=== PATIENT | female | born 1955 | race Two or more races ===

== ENCOUNTER 2018-09-20 12:13 | Emergency (ER) | payer OTHER ==
[~2018-09-20] VITALS: Ht 165.1 cm; Wt 64.4 kg
[2018-09-20] MEDS ORDERED: SODIUM CHLORIDE 0.9% 1,000 ML IV ONE (12:19)
[2018-09-20 13:02] LABS: Basophils # (auto) 0 uL; Basophils % (auto) 0.2 % (0.0-2.0); Eosinophils # (auto) 0 uL; Eosinophils % (auto) 0.3 % (0.0-7.0); Hemoglobin 14.3 g/dL (12.2-16.2); Lymphocytes # (auto) 1.2 uL; Lymphocytes % (auto) 19.9 % (10.0-50.0); Mean Corpuscular Hemoglobin 31.2 pg (28.0-32.0); Mean Corpuscular Volume 91.6 fL (80.0-100.0); Monocytes # (auto) 0.4 uL; Monocytes % (auto) 7.4 % (0.0-12.0); Neutrophils # (auto) 4.3 uL; Neutrophils % (auto) 72.2 % (37.0-80.0); Nucleated Red Blood Cells % 0.3 %; Platelet Count (auto) 257 10^3/uL (140-450); Red Blood Cells 4.58 10^6/uL (4.0-5.20); Red Cell Distribution Width 13.2 % (11.8-14.3)
[2018-09-20 13:14] LABS: Urine Bacteria NONE SEEN /hpf (None Seen); Urine Blood Negative /uL (Negative); Urine Specific Gravity 1.039 (1.001-1.035); Urine WBC 2 /hpf (0 - 5)
[2018-09-20 13:20] LABS: Albumin 3.8 g/dL (3.4-5.0); BUN/Creatinine Ratio 25.6; Calcium 9.2 mg/dL (8.5-10.1); Potassium 3.9 mmol/L (3.5-5.1)
[2018-09-20 13:22] LABS: Bilirubin, Total 0.4 mg/dL (0.2-1.0); Total Protein 7.5 g/dL (6.4-8.2)
[2018-09-20] MEDS ORDERED: InsuLIN REG 1unit/0.01ml Soln (100units/ml) IV ONE ×2 (16:30→18:15)
[2018-09-20 19:26] VITALS: BP 131/68
== END 2018-09-20 20:28 | disposition home or self-care (01) ==
LOC: EDBD 12:13 → ER 12:17
DX: E11.65 Type 2 diabetes mellitus with hyperglycemia (principal); I10 Essential (primary) hypertension; Z85.42 Personal history of malignant neoplasm of other parts of uterus
CPT/HCPCS: 36415; 70450; 71045; 80053; 81001; 82962; 85025; 93005; 94761; 96374; 96376; 99284; J1815; J7030; 96361

== ENCOUNTER 2019-10-01 11:28 | Inpatient (IN) | payer OTHER ==
[~2019-10-01] VITALS: Ht 160 cm; Wt 58.9 kg
[2019-10-01] MEDS ORDERED: SODIUM CHLORIDE 0.9% 1,000 ML IV ONE ×2 (11:31)
[2019-10-01 12:11] LABS: Basophils # (auto) 0 10 ^3/uL (0-0.2); Basophils % (auto) 0.5 % (0.0-2.0); Eosinophils # (auto) 0.1 10 ^3/uL (0-0.8); Eosinophils % (auto) 0.9 % (0.0-7.0); Hematocrit 38.5 % (36.0-46.0); Hemoglobin 12.8 g/dL (12.2-16.2); Lymphocytes # (auto) 1.9 10 ^3/uL (0.4-5.4); Lymphocytes % (auto) 21.5 % (10.0-50.0); Mean Corpuscular Hemoglobin 29.5 pg (28.0-32.0); Mean Corpuscular Hgb Conc. 33.3 g/dL (32.0-36.0); Mean Corpuscular Volume 88.5 fL (80.0-100.0); Monocytes # (auto) 0.8 10 ^3/uL (0-1.3); Monocytes % (auto) 8.4 % (0.0-12.0); Neutrophils # (auto) 6.1 10 ^3/uL (1.6-8.6); Neutrophils % (auto) 68.7 % (37.0-80.0); Nucleated Red Blood Cells % 0.1 %; Platelet Count (auto) 270 10^3/uL (140-450); Red Blood Cells 4.35 10^6/uL (4.0-5.20); White Blood Cell 8.9 10^3/uL (4.4-10.8)
[2019-10-01 12:26] LABS: INR 1.19 (0.9-1.15); Partial Thromboplastin Time 28.5 sec (23.64-32.05)
[2019-10-01 12:30] LABS: Albumin 2.4 g/dL (3.4-5.0); BUN/Creatinine Ratio 26.8; Potassium 3.6 mmol/L (3.5-5.1)
[2019-10-01 12:33] LABS: Bilirubin, Total 0.3 mg/dL (0.2-1.0); Total Protein 6.8 g/dL (6.4-8.2)
[2019-10-01] MEDS ORDERED: cefTRIAXone 1GM/50ML D5W 50 ML IV ONE (12:45)
[2019-10-01] MEDS ORDERED: AZITHROMYCIN 500MG/ 250ML 250 ML IV ONE (12:45)
[2019-10-01 13:29] LABS: Lactic Acid w/Reflex 2.5 mmol/L (0.4-2.0)
[2019-10-01] MEDS: NOREPINEPHRINE 8 MG/250ML KIT 250 ML IV SCH (14:23)
[2019-10-01] MEDS ORDERED: ENOXAPARIN SOD 60 MG/0.6 ML SYRINGE SC ONE (15:00)
[2019-10-01] MEDS ORDERED: FUROSEMIDE 20 MG/2 ML VIAL IV ONE (16:15)
[2019-10-01] MEDS ORDERED: DEXTROSE (50%) 50ML SYRG IV PRN (16:15)
[2019-10-01] MEDS ORDERED: NITROGLYCERIN 0.4 MG SL TAB SL PRN (16:15)
[2019-10-01 17:03] LABS: CRP High Sensitivity 6.43 mg/dL (< 0.3)
[2019-10-01] MEDS: InsuLIN REG 1unit/0.01ml Soln (100units/ml) SC SCH ×2 (17:21→22:30)
[2019-10-01] MEDS: ACCU-CHEK COMFORT CURVE STRIP VI SCH ×2 (17:21→22:30)
[2019-10-01] MEDS ORDERED: MORPHINE SULF INJ 2 MG/ML SYRINGE 1ML ONE (18:32)
[2019-10-01] MEDS: MORPHINE SULF INJ 2 MG/ML SYRINGE 1ML IV PRN ×2 (18:36→22:23)
[2019-10-01 18:45] LABS: Cholesterol 105 mg/dL (< 200)
[2019-10-01 18:47] LABS: HDL Cholesterol 33 mg/dL (40-59); LDL Cholesterol 54 mg/dL (< 100); Triglycerides 157 mg/dL (< 150)
[2019-10-01] MEDS: ATORVASTATIN 20 MG TAB PO SCH (22:22)
[2019-10-02] MEDS: MORPHINE SULF INJ 2 MG/ML SYRINGE 1ML IV PRN ×3 (00:48→17:19)
[2019-10-02 07:17] LABS: Basophils # (auto) 0 10 ^3/uL (0-0.2); Basophils % (auto) 0.5 % (0.0-2.0); Eosinophils # (auto) 0 10 ^3/uL (0-0.8); Eosinophils % (auto) 0.6 % (0.0-7.0); Hematocrit 33.8 % (36.0-46.0); Hemoglobin 11.2 g/dL (12.2-16.2); Lymphocytes # (auto) 1.1 10 ^3/uL (0.4-5.4); Lymphocytes % (auto) 15.3 % (10.0-50.0); Mean Corpuscular Hemoglobin 29.3 pg (28.0-32.0); Mean Corpuscular Hgb Conc. 33.2 g/dL (32.0-36.0); Mean Corpuscular Volume 88.3 fL (80.0-100.0); Monocytes # (auto) 0.5 10 ^3/uL (0-1.3); Monocytes % (auto) 7.7 % (0.0-12.0); Neutrophils # (auto) 5.4 10 ^3/uL (1.6-8.6); Neutrophils % (auto) 75.9 % (37.0-80.0); Nucleated Red Blood Cells % 0.1 %; Platelet Count (auto) 225 10^3/uL (140-450); Red Blood Cells 3.83 10^6/uL (4.0-5.20); Red Cell Distribution Width 15.3 % (11.8-14.3); White Blood Cell 7.1 10^3/uL (4.4-10.8)
[2019-10-02] MEDS: ACCU-CHEK COMFORT CURVE STRIP VI SCH ×4 (07:27→22:17)
[2019-10-02] MEDS: InsuLIN REG 1unit/0.01ml Soln (100units/ml) SC SCH ×4 (07:28→22:00)
[2019-10-02 07:40] LABS: Albumin 2.1 g/dL (3.4-5.0); Potassium 3.3 mmol/L (3.5-5.1)
[2019-10-02 07:47] LABS: BUN/Creatinine Ratio 31.6; Bilirubin, Total 0.3 mg/dL (0.2-1.0); Calcium 7.8 mg/dL (8.5-10.1); Total Protein 6.1 g/dL (6.4-8.2)
[2019-10-02] MEDS ORDERED: POTASSIUM CHL 20 Meq TABLET PO ONE (08:15)
[2019-10-02] MEDS ORDERED: POTASSIUM EFFERVESENT TAB 25 MEQ GT ONE (08:30)
[2019-10-02] MEDS: cefTRIAXone 1GM/50ML D5W 50 ML IV SCH (09:16)
[2019-10-02] MEDS: ASPirin-EC 81 mg tab PO SCH (10:17)
[2019-10-02] MEDS: AZITHROMYCIN 500MG/ 250ML 250 ML IV SCH (10:17)
[2019-10-02] MEDS: FAMOTIDINE 20 MG TAB PO SCH (10:17)
[2019-10-02] MEDS: NOREPINEPHRINE 8 MG/250ML KIT 250 ML IV SCH (14:19)
--- NOTE | 2019-10-02 14:24 | NUR ---
1420 10/02/[address] Mendoza-he stated patient stable for transfer to [facility]-he will place the order. I faxed ER notes, H&P, all xrays, today's labs, vitals and medication list to [facility].
[2019-10-02] MEDS ORDERED: HEPARIN 1,000 UNITS/ml 1ML VIAL IV ONE (14:30)
[2019-10-02] MEDS ORDERED: POTASSIUM CHLORIDE 40 MEQ, LIDOCAINE 1% (LOCAL ANESTH.) 4 ML in SODIUM CHL 0.9% 100 ML IV ONE (14:45)
[2019-10-02 15:14] LABS: Urine Bacteria FEW /hpf (None Seen); Urine Blood Negative /uL (Negative); Urine Hyaline Cast MOD /lpf (0 - 2); Urine Mucus FEW (None Seen); Urine Specific Gravity 1.029 (1.001-1.035); Urine WBC 13 /hpf (0 - 5)
--- NOTE | 2019-10-02 15:22 | NUR ---
1515 10/02/19 I faxed transfer order and Notice Regarding Post Stabilization to [facility]-document scanned into [employer]. I called [facility] and spoke with record systems analyst Piper, asked to speak with assigned case briefer regarding the transfer. Per Piper the assigned case briefer [facility] is unavailable at this time. I let Piper know that patient is stable for transfer, provided her with contact information for nurse's station and Dr. Mendoza. I asked that she have [facility] call me regarding the status of the transfer request. I asked Piper to let him know that I am here until only 430pm, and that we have an experimental electronics developer case briefer/child welfare social worker pageable through the hospital paper goods machine operator.
--- NOTE | 2019-10-02 16:28 | NUR ---
6413 10/02/19 I received a call from [facility] letting me know that they did receive the transfer order and he is working on finding patient a bed-he will call nurse's station when a bed becomes available.
[2019-10-02 17:00] VITALS: BP 115/67
--- NOTE | 2019-10-02 17:00 | NUR ---
RECEIVED PATIENT FROM THE ER WITH DIAGNOSIS OF ACUTE RESP FAILURE, C/O OF SOB, A/O TIMES 4, UNDERSTANDS KHMER BUT SPEAKS MOSTLY ITALIAN, TLC TO THE RT SUBCLAVIAN AND 18G TO THE LAC BOTH FLUSHED AND PATENT, CHEST TUBE TO THE RT CHEST CONNECTED TO -20CM OF SUCTION WITH NO AIR LEAK, STATES SHE CAN USE THE BEDPAN, O2 AT 2L BY N/C, PATIENT STAES SHE HAS SOME SORES TO THE ROOF OF HER MOUTH, WHICH ARE WHITE AND SLIGHTLY RED
--- NOTE | 2019-10-02 17:19 | NUR ---
PATIENT REPORTS GENERALIZED PAIN /. MEDICATED WITH MORPHINE 2 MG PER ORDER.
--- NOTE | 2019-10-02 17:40 | NUR ---
CHOLO STATES THE PAIN IS MUCH BETTER TO HER RT SIDE AND SHE WAS ABLE TO ANSWER THE ADMISSION QUESTIONS AND I CALLED THE DAUGHTER TO HELP ANSWER
--- NOTE | 2019-10-02 18:30 | NUR ---
SPOKE WITH FAMILY REGARDING PATIENTS HOME MEDS AND THEY WILL CALL BACK TOMORROW WITH THE LIST, PATIENT ATE A FEW BITES OF HER DINNER ONLY NO CHANGE SINCE COMING TO THE UNIT, WILL CONTINUE TO MONITOR AND GIVE REPORT TO THE NEXT SHIFT
--- NOTE | 2019-10-02 19:30 | NUR ---
OPENING SHIFT RECEIVED REPORT FROM DAY SHIFT RN. ASSUMED CARE OF PATIENT. PATIENT IN BED WATCHING TV WITH NO SIGNS OR SYMPTOMS OF SOB, PAIN OR DISTRESS. RIGHT UPPER SUBCLAVIAN TLC AND LEFT ANTECUBITAL IV - CLEAN/DRY/INTACT. RIGHT UPPER CHEST TUBE CONNECTED TO SUCTION - PATENT AND DRAINING, NO SIGNS OF CREPITUS AROUND SITE. REPOSITIONED FOR COMFORT. UPDATED PATIENT ON PLAN OF CARE TRANSLATED VIA CCT. BED IN LOWEST POSITION, SIDE RAILS UP X2. CALL LIGHT WITHIN REACH. WILL CONTINUE TO MONITOR.
[2019-10-02 20:00] VITALS: BP 98/56
--- NOTE | 2019-10-02 22:00 | NUR ---
PM CARE PERFORMED PM CARE WITH WASH CLOTHS. PARTIAL LINEN CHANGE AND GOWN CHANGED. SKIN REASSESSED AT THIS TIME. REPOSITIONED FOR COMFORT. WILL CONTINUE TO MONITOR.
[2019-10-02] MEDS: ENOXAPARIN SOD 60 MG/0.6 ML SYRINGE SC SCH (22:16)
[2019-10-02] MEDS: ATORVASTATIN 20 MG TAB PO SCH (22:16)
[2019-10-03] VITALS (7 sets, daily range): BP systolic 102–120; BP diastolic 66–77
[2019-10-03] MEDS: MORPHINE SULF INJ 2 MG/ML SYRINGE 1ML IV PRN ×3 (00:35→18:43)
[2019-10-03] MEDS: InsuLIN REG 1unit/0.01ml Soln (100units/ml) SC SCH ×4 (06:31→22:00)
[2019-10-03] MEDS: ACCU-CHEK COMFORT CURVE STRIP VI SCH ×4 (06:31→22:16)
--- NOTE | 2019-10-03 07:38 | NUR ---
END OF SHIFT REPORT GIVEN TO DAY SHIFT RN. CARE ENDORSED.
[2019-10-03] MEDS: cefTRIAXone 1GM/50ML D5W 50 ML IV SCH (08:41)
--- NOTE | 2019-10-03 09:35 | NUR ---
MD Dr. Mejia at bedside updated on patient condition with new orders, this RN to input into system.
--- NOTE | 2019-10-03 10:13 | NUR ---
1000 10/03/19 I contacted [facility] and spoke with solid waste analyst Lucila-asked to speak with assigned housing case manager regarding why patient was not transferred yesterday. Per Lucila the assigned housing case manager is Eliza and she is in a meeting right now-she will have to give me a call back.
[2019-10-03] MEDS: AZITHROMYCIN 500MG/ 250ML 250 ML IV SCH (10:37)
[2019-10-03] MEDS: ENOXAPARIN SOD 60 MG/0.6 ML SYRINGE SC SCH ×2 (10:38→22:16)
[2019-10-03] MEDS: FAMOTIDINE 20 MG TAB PO SCH (10:39)
[2019-10-03] MEDS: ASPirin-EC 81 mg tab PO SCH (10:39)
--- NOTE | 2019-10-03 10:45 | NUR ---
ELIMINATION Patient requested to use bedside commode, tolerated well and voided.
--- NOTE | 2019-10-03 11:00 | NUR ---
RADIOLOGY Radiology technicians at bedside to obtain chest x-ray.
--- NOTE | 2019-10-03 11:10 | NUR ---
[facility] Received phone call from Lizy catalytic case operator regarding vitals and overall condition. Assessment for transfer.
--- NOTE | 2019-10-03 11:25 | NUR ---
FAMILY Received phone call from patients jorge Calhoun, correct password provided and updated on patient condition.
--- NOTE | 2019-10-03 11:35 | NUR ---
MD Dr. Mendoza at bedside updated on patient condition with no new orders. MD spoke to patient regarding plan of care and questions/concerns answered by MD.
[2019-10-03] MEDS ORDERED: ATO40T PO (16:05)
[2019-10-03] MEDS ORDERED: ASPI325T4 PO (16:05)
[2019-10-03] MEDS ORDERED: CLOP75TA28 PO (16:05)
[2019-10-03] MEDS ORDERED: LOSA25TA38 PO (16:05)
[2019-10-03] MEDS ORDERED: HYDR-4833 PO (16:05)
[2019-10-03] MEDS ORDERED: METF-929 PO (16:05)
--- NOTE | 2019-10-03 19:55 | NUR ---
Spoke with patient regarding plans for a thoracentesis and possible chest tube placement tomorrow by Dr. Mejia; patient is A/O x 4 and is refusing to sign the consent at this time. Patient states she "does not want to have it done". Spoke with Dr. Mejia and let him know patient's wishes, MD states he will be in tomorrow AM to speak with her.
--- NOTE | 2019-10-03 21:11 | NUR ---
Patient transferred from [facility] transferred to room 248B via gurney on hall monitor and portable 02. All patient medications and personal belongings transferred with patient. Chest tube connected to low suction, amount on arrival 855ML of serous sanguineous fluid, Patient denies pain or discomfort, no SOB noted. Will continue to monitor.
--- NOTE | 2019-10-03 21:26 | NUR ---
Patient transferred to [facility] via bed on portable monitor and 2 L NC in no distress. Chest tube connected to wall suction at -20 mm Hg with no air leak noted, draining serosanguineous. Approximately 70 ml output noted since 0. Care endorsed to AMBER Elam. Patient's daughter, Unique, updated of transfer after she verified password via phone.
[2019-10-03] MEDS: ATORVASTATIN 20 MG TAB PO SCH (22:16)
--- NOTE | 2019-10-03 22:18 | NUR ---
Patient refused insulin, Patient hasn't had an appetite and not eating much. Will monitor.
--- NOTE | 2019-10-04 01:28 | NUR ---
Patient is resting in bed, no sings of distress, chest tube working properly.
[2019-10-04] MEDS: MORPHINE SULF INJ 2 MG/ML SYRINGE 1ML IV PRN ×4 (03:12→17:01)
--- NOTE | 2019-10-04 03:12 | NUR ---
Patient was medicated for pain. Pain is been manage with medication. Patient comfortable.
[2019-10-04 05:00] VITALS: BP 114/65
--- NOTE | 2019-10-04 05:39 | NUR ---
Patient resting, Blood sugar 89, patient asymptomatic. Will continue to monitor.
[2019-10-04] MEDS: InsuLIN REG 1unit/0.01ml Soln (100units/ml) SC SCH ×2 (06:02→11:30)
[2019-10-04] MEDS: ACCU-CHEK COMFORT CURVE STRIP VI SCH ×2 (06:02→11:53)
--- NOTE | 2019-10-04 06:27 | NUR ---
Chest tube reservoir has a total of 950ml in it, total output for this shift since transferred from [facility] 100ml
--- NOTE | 2019-10-04 08:00 | NUR ---
OPENING SHIFT NOTE: PATIENT RESTING IN BED, A/OX4. RESPIRATIONS EVEN AND UNLABORED. C/O PAIN 7/10 RIGHT SIDED IN THE THORACIC AREA. OUTPUT AT BEGINNING OF SHIFT 950ML. UPDATED ON PLAN OF CARE. CALL LIGHT WITHIN REACH. WILL CONTINUE TO MONITOR.
[2019-10-04] MEDS: FAMOTIDINE 20 MG TAB PO SCH (08:35)
[2019-10-04] MEDS: cefTRIAXone 1GM/50ML D5W 50 ML IV SCH (08:35)
[2019-10-04] MEDS: ASPirin-EC 81 mg tab PO SCH (08:35)
[2019-10-04] MEDS: ENOXAPARIN SOD 60 MG/0.6 ML SYRINGE SC SCH (08:35)
[2019-10-04 09:00] VITALS: BP 113/82
--- NOTE | 2019-10-04 09:30 | NUR ---
DR. MICHEL AT BEDSIDE PERFORMING BEDSIDE THORACENTESIS. CONSENT SIGNED AND PLACED IN THE HARD CHART.
--- NOTE | 2019-10-04 09:50 | NUR ---
PLEURAL FLUID TAKEN TO LAB BY THIS RN.
--- NOTE | 2019-10-04 10:04 | NUR ---
CALL FROM [facility]: BRENNA WITH CASE MANAGEMENT CALLED. VERIFIED WITH DR. MICHEL CHEST TUBE OK TO CLAMP DURING TRANSPORT TO [facility]. PENDING BED ASSIGNMENT.
--- NOTE | 2019-10-04 10:20 | NUR ---
WOUND CARE NOTE: ADDED PATIENT TO SKIN INTEGRITY MONITORING D/T LOW CASEY SCORE OF 12. PATIENT ADMITTED TO [facility] WITH DIAGNOSIS OF ACUTE RESPIRATORY FAILURE. SHE HAS CURRENT CASEY SCORE OF 18. PATIENT ABLE TO SELFT TURN/REPOSITION SELF, GETS UP TO COMMODE. SHE IS CURRENTLY WOUND FREE, ALL BONY PROMINENCES PINK/BLANCHABLE. RECOMMEND: BID/PRN APPLICATION WITH MOISTURE BARRIER CREAM, SKIN/WOUND CARE PLAN. NO CONTINUED MONITORING NEEDED AT THIS TIME.
[2019-10-04] MEDS: AZITHROMYCIN 500MG/ 250ML 250 ML IV SCH (11:21)
--- NOTE | 2019-10-04 12:11 | NUR ---
Est energy needs 5152-4180 kcal (30-35 kcal/kg BW 58.9kg) Est protein needs 59-72g (1-1.2g/kg BW r/t COPD) will reassess prn. Addendum: 10/04/19 at [address] Amended: Links added.
[2019-10-04 13:16] VITALS: BP 115/75
--- NOTE | 2019-10-04 14:54 | NUR ---
BED ASSIGNMENT: TELE UNIT ROOM 447, ACCEPTED TO [facility] TRANSPORT ARRANGED BY CRITICAL CARE. [phone] PHONE NUMBER FOR WILLIAMS LIDAR ANALYST. ESTIMATED LIQUOR BRIDGE OPERATOR TIME 1700.
[2019-10-04 15:16] VITALS: BP 100/75
--- NOTE | 2019-10-04 17:32 | NUR ---
DISCHARGE: PATIENT DISCHARGED, [facility] SCRUBBING MACHINE OPERATOR LANA ASSISTED WITH CHEST TUBE FOR TRANSPORT. PATIENT HAD 110 OUT OF CHEST TUBE SINCE START OF SHIFT. PATIENT LEFT WITH EVEN AND UNLABORED RESPIRATIONS. IV'S REMAINED INTACT. TELE RETURNED TO CARDIO UNIT. PATIENT LEFT WITH ALL BELONGINGS.
== END 2019-10-04 17:30 | disposition critical access hospital (66) | DRG 189 ==
LOC: EDBD 11:28 → ER 11:28 → TELE 11:29 → DOU IN ICU 10-02 16:57 → TELE-EAST 10-03 20:55
PROVIDERS: ADMIT Nurse Practitioner Acute Care; ATTEND Internal Medicine
PROC: 0W9930Z Drainage of Right Pleural Cavity with Drainage Device, Percutaneous Approach (ICD-10-PCS; principal; 2019-10-01)
PROC: 05HY33Z Insertion of Infusion Device into Upper Vein, Percutaneous Approach (ICD-10-PCS; 2019-10-01)
PROC: 0W9B3ZZ Drainage of Left Pleural Cavity, Percutaneous Approach (ICD-10-PCS; 2019-10-04)
DX: J96.01 Acute respiratory failure with hypoxia (principal); J18.9 Pneumonia, unspecified organism; I21.A1 Myocardial infarction type 2; I26.99 Other pulmonary embolism without acute cor pulmonale; J91.8 Pleural effusion in other conditions classified elsewhere; E44.0 Moderate protein-calorie malnutrition; F32.9 Major depressive disorder, single episode, unspecified; I10 Essential (primary) hypertension; E11.9 Type 2 diabetes mellitus without complications; I95.9 Hypotension, unspecified; E78.5 Hyperlipidemia, unspecified; C54.1 Malignant neoplasm of endometrium; Z85.42 Personal history of malignant neoplasm of other parts of uterus; Z90.710 Acquired absence of both cervix and uterus; Z86.73 Personal history of transient ischemic attack (TIA), and cerebral infarction without residual deficits; Z79.4 Long term (current) use of insulin; Z68.23 Body mass index [BMI] 23.0-23.9, adult
CPT/HCPCS: 32551; 32555; 36415; 36556; 36600; 71045; 71260; 74177; 80053; 80061; 81001; 82805; 82962; 83036; 83605; 83615; 83880; 83986; 84443; 84484; 85025; 85610; 85730; 86141; 86301; 86304; 87040; 87070; 87081; 87205; 89051; 93005; 93306; 96361; 96365; 96368; 96372; G0378; J0696; J1815